=== PATIENT | female | born 1970 | race Caucasian/White ===

== ENCOUNTER → 2016-10-13 | Outpatient (REF) | payer OTHER | LOC: M LAB REF 15:45 | PROVIDERS: ATTEND Physician Assistant | DX: N39.0 Urinary tract infection, site not specified (principal) ==

== ENCOUNTER → 2018-02-16 | Outpatient (REF) | payer OTHER ==
[2018-02-16 22:30] LABS: APPEARANCE, URINE CLOUDY (CLEAR); BACTERIA, URINE AUTO 3+ (NEGATIVE); BILIRUBIN, URINE AUTO NEGATIVE (NEGATIVE); BLOOD, URINE BLOOD 3+ (NEGATIVE); COLOR, URINE AMBER (YELLOW); GLUCOSE, URINE (UA) AUTO NEGATIVE (NEGATIVE); KETONE, URINE AUTO NEGATIVE (NEGATIVE); LEUKOCYTE ESTERASE, URINE AUTO 2+ (NEGATIVE); NITRITE, URINE AUTO POSITIVE (NEGATIVE); PROTEIN, URINE AUTO NEGATIVE (NEGATIVE); RBC, URINE AUTO 76 /HPF (0-3); SPECIFIC GRAVITY URINE AUTO 1.016 (1.002-1.035); SQUAMOUS EPITHELIAL CELL UR AU 4 /HPF (0-6); WBC, URINE AUTO 100 /HPF (0-3)
== END ==
LOC: M LAB REF 15:12
DX: N39.0 Urinary tract infection, site not specified (principal)
CPT/HCPCS: 81001

== ENCOUNTER → 2018-05-14 | Outpatient (CLI) | payer BC | LOC: M WHC 08:43 | DX: Z12.31 Encounter for screening mammogram for malignant neoplasm of breast (principal); Z80.49 Family history of malignant neoplasm of other genital organs | CPT/HCPCS: 77067 ==

== ENCOUNTER → 2019-05-20 | Outpatient (REF) | payer OTHER | LOC: M SFHCWAGY 08:42 | PROVIDERS: ATTEND Nurse Practitioner Family | DX: Z12.4 Encounter for screening for malignant neoplasm of cervix (principal) | CPT/HCPCS: 87624; G0123 ==

== ENCOUNTER → 2019-05-20 | Outpatient (CLI) | payer BC ==
--- NOTE | 2019-05-20 09:54 | REPMRS ---
Patient History The patient states she had a clinical breast exam in 04/2019. Family history of breast cancer under age 50 in maternal aunt, endometrial cancer at age 50 or over in maternal grandmother. No Hormone Replacement Therapy 3D TOMOSYNTHESIS WAS PERFORMED. [facility]%. Digital Woman Screen Mammo: May 20, 2019 - Exam #: [id number] Bilateral CC and MLO view(s) were taken. Technologist: Deanne Blake, Technologist Prior study comparison: May 14, 2018, bilateral digital woman screen mammo performed at [facility]. February 25, 2016, digital woman screen mammo performed at [facility]. FINDINGS: The breast tissue is heterogeneously dense. This may lower the sensitivity of mammography. There has been no change in the appearance of the mammogram from the prior studies. There is a moderate amount of residual fibroglandular tissue which is fairly symmetric. There is no interval development of dominant mass, areas of architectural distortion, or clustered microcalcification typical of malignancy. Assessment: BI-RADS/ACR category 1 mammogram. Negative Mammogram. Recommendation Routine screening mammogram in 1 year (for women over age 40). This mammogram was interpreted with the aid of an FDA-approved computer-aided dectection system. Electronically Signed By: Devan Ohara MD 05/20/19 0949
== END ==
LOC: M WHC 08:13
PROVIDERS: ATTEND Nurse Practitioner Family
DX: Z12.31 Encounter for screening mammogram for malignant neoplasm of breast (principal); Z80.3 Family history of malignant neoplasm of breast

== ENCOUNTER → 2020-05-25 | Outpatient (CLI) | payer BC ==
--- NOTE | 2020-05-25 09:39 | REPMRS ---
Patient History The patient states she had a clinical breast exam in 05/21 Family history of breast cancer under age 50 in maternal aunt, endometrial cancer at age 50 or over in maternal grandmother. No Hormone Replacement Therapy 3D TOMOSYNTHESIS WAS PERFORMED. [facility] lifetime [facility] for [facility] cancer is 15.3%. Volpara breast density b. Digital Woman Screen Mammo: May 25, 2020 - Exam #: [id number] Bilateral MLO and CC view(s) were taken. CV view(s) were taken of the right breast. Technologist: Sadaf Izaguirre, Technologist Prior study comparison: May 20, 2019, bilateral digital woman screen mammo performed at [facility]. May 14, 2018, bilateral digital woman screen mammo performed at [facility]. FINDINGS: There are scattered fibroglandular densities. There has been no change in the appearance of the mammogram from the prior studies. There is a mild amount of residual fibroglandular tissue which is fairly symmetric. There is no interval development of dominant mass, architectural distortion, or clustered microcalcification suggestive of malignancy. Assessment: BI-RADS/ACR category 1 mammogram. Negative Mammogram. Recommendation Routine screening mammogram in 1 year (for women over age 40). This mammogram was interpreted with the aid of an FDA-approved computer-aided dectection system. Electronically Signed By: Devan Ohara MD 05/25/20 0939
== END ==
LOC: M WHC 08:26
PROVIDERS: ATTEND Nurse Practitioner Family
DX: Z12.31 Encounter for screening mammogram for malignant neoplasm of breast (principal); Z80.3 Family history of malignant neoplasm of breast; Z80.49 Family history of malignant neoplasm of other genital organs

== ENCOUNTER → 2022-07-26 | Outpatient (REF) | payer OTHER | LOC: M PLALAB 08:37 | PROVIDERS: ATTEND Advanced Practice Midwife | DX: Z12.4 Encounter for screening for malignant neoplasm of cervix (principal) | CPT/HCPCS: 87624; G0123 ==

== ENCOUNTER → 2022-07-26 | Outpatient (CLI) | payer BC, OTHER | LOC: M WHC 08:07 | PROVIDERS: ATTEND Advanced Practice Midwife | DX: Z12.31 Encounter for screening mammogram for malignant neoplasm of breast (principal) ==

== ENCOUNTER → 2023-07-31 | Outpatient (REF) | payer OTHER | LOC: M PLALAB 11:14 | PROVIDERS: ATTEND Advanced Practice Midwife | DX: Z12.4 Encounter for screening for malignant neoplasm of cervix (principal); R87.610 Atypical squamous cells of undetermined significance on cytologic smear of cervix (ASC-US) | CPT/HCPCS: 87624; G0123 ==

== ENCOUNTER → 2023-07-31 | Outpatient (CLI) | payer BC, OTHER | LOC: M WHC 08:05 | PROVIDERS: ATTEND Advanced Practice Midwife | DX: Z12.31 Encounter for screening mammogram for malignant neoplasm of breast (principal) ==